=== PATIENT | male | born 1945 | race Caucasian/White ===

== ENCOUNTER 2018-03-10 00:39 | Emergency (ER) | payer MEDICARE, BC ==
[~2018-03-10] VITALS: Wt 94.1 kg
[2018-03-10 00:39] VITALS: BP 134/65
[~2018-03-10 00:39] MED LIST: ASPI-630 PO; MOXI3DRO2 LEFTEYE; MOXI3DRO2 RIGHTEYE; NEPA1.7D LEFTEYE; NEPA1.7D RIGHTEYE; PRED5DRO16 LEFTEYE; PRED5DRO16 RIGHTEYE
--- NOTE | 2018-03-10 00:46 | ED.ADGEN ---
Past History Past Medical History: Diabetes, Hypertension Adult General Chief Complaint Chief Complaint ".. I ve been feeling goyo bad the last couple days... I was started on a new blood pressure med.. ( Linsinopril 10) for my BP.. but been having an irregular heart beats..." " I was asleep at home.. and I woke up .. and could not feel my heart beating... so I knew I had to come in..." HPI HPI Patient is a 72 year old male who presents with above hx and complaints of dysrhythmia. Pt. presents in 3rd degree block and ventricular rate of 25. Pt. dizzy and diaphoretic. Pt. has hx DM and HTN. Pt. normally follows with Dr. Turk. Pt. does have pending apt. with a airport refueling handler. Pt. denies prior cardiac events or angina. Pt. placed on pacer and received 0.5 mg of of atropine. Pt. heart rate responded to pacer and atropine with rate equal to pacer, currently at a rate of 60 and Blood pressure of 147/53. Dr. Bhakta informed of presentation and accepts pt. in transfer to [facility] for possible venous pacer. Review of Systems Review of Systems Constitutional: Denies fever or chills [] Eyes: Denies change in visual acuity, redness, or eye pain [] HENT: Denies nasal congestion or sore throat [] Respiratory: Denies cough or shortness of breath [] Cardiovascular: No additional information not addressed in HPI [] GI: Denies abdominal pain, , vomiting, bloody stools or diarrhea [Complaints of ]Nausea : Denies dysuria or hematuria [] Musculoskeletal: Denies back pain or joint pain [] Integument: Denies rash or skin lesions [Complaints of ]Diaphoretic Neurologic: Denies headache, focal weakness or sensory changes [] Complaints of severe generalized weakness, dizzy. Endocrine: Denies polyuria or polydipsia [] All other systems were reviewed and found to be within normal limits, except as documented in this note. Family History Family History Non-contributory Current Medications Current Medications Current Medications Medications (Trade) Dose Ordered Sig/Camryn Start Time Stop Time Status Last Admin Dose Admin Aspirin (Children'S Aspirin) 324 mg 1X ONCE 03/10/18 01:15 03/10/18 01:17 DC Atropine Sulfate (ATROPINE 0.5mg SYRINGE) 0.5 mg 1X ONCE 03/10/18 01:15 03/10/18 01:17 DC Dopamine HCl/ Dextrose 250 ml @ 0 mls/hr 1X ONCE 03/10/18 01:30 03/10/18 01:31 DC Heparin Sodium (Porcine) (Heparin Sodium) 4,000 unit 1X ONCE 03/10/18 01:15 03/10/18 01:17 DC Heparin Sodium/ Dextrose 500 ml @ 0 mls/hr CONT PRN 03/10/18 01:30 Lactated Ringer's 1,000 ml @ 1,000 mls/hr Q1H 03/10/18 01:15 03/10/18 02:15 DC Ondansetron HCl (Zofran) 4 mg STK-MED ONCE 03/10/18 01:53 03/10/18 01:54 DC Allergies Allergies Allergies Coded Allergies Type Severity Reaction Last Updated Verified codeine Allergy Unknown upset stomach 10/31/14 No naproxen Allergy Unknown nausea 10/31/14 No Uncoded Allergies Type Severity Reaction Last Updated Verified VITAMINS Allergy Mild 10/13/14 Physical Exam Physical Exam Constitutional: In acute distress, morbid in appearance prior to pacing. [] HENT: Normocephalic, atraumatic, bilateral external ears normal, oropharynx moist, no oral exudates, nose normal. [] Eyes: PERRLA, EOMI, conjunctiva normal, no discharge. [] Neck: Normal range of motion, no tenderness, supple, no stridor. [] Cardiovascular:Bradycardic Heart rate regular rhythm, no murmur , PMI to Lt. , 3rd degree block on monitor Lungs & Thorax: Bilateral breath sounds clear to auscultation [] Abdomen: Bowel sounds normal, soft, no tenderness, no masses, no pulsatile masses. [] Skin: Warm, diaphoretic, no erythema, no rash. [] Back: No tenderness, no CVA tenderness. [] Extremities: No tenderness, no cyanosis, no clubbing, ROM intact, no edema. [] Neurologic: Alert and oriented X 3, normal motor function, normal sensory function, no focal deficits noted. [] Psychologic: Affect anxious, judgement normal, mood normal. [] Current Patient Data Vital Signs Vital Signs Date Time Temp Pulse Resp B/P (MAP) Pulse Ox O2 Delivery O2 Flow Rate FiO2 03/10/18 00:39 32 22 97 Room Air Lab Results Laboratory Tests Test 03/10/18 00:41 03/10/18 01:04 03/10/18 01:18 White Blood Count 9.8 x10^3/uL (4.0-11.0) Red Blood Count 3.77 x10^6/uL (4.30-5.70) L Hemoglobin 12.4 g/dL (13.0-17.5) L Hematocrit 36.0 % (39.0-53.0) L Mean Corpuscular Volume 95 fL (79-100) Mean Corpuscular Hemoglobin 33 pg (25-35) Mean Corpuscular Hemoglobin Concent 34 g/dL (31-37) Red Cell Distribution Width 16.7 % (11.5-14.5) H Platelet Count 203 x10^3/uL (140-400) Neutrophils (%) (Auto) 18 % (31-73) L Lymphocytes (%) (Auto) 48 % (24-48) Monocytes (%) (Auto) 31 % (0-9) H Eosinophils (%) (Auto) 2 % (0-3) Basophils (%) (Auto) 1 % (0-3) Neutrophils # (Auto) 1.8 x10^3uL (1.8-7.7) Lymphocytes # (Auto) 4.7 x10^3/uL (1.0-4.8) Monocytes # (Auto) 3.1 x10^3/uL (0.0-1.1) H Eosinophils # (Auto) 0.2 x10^3/uL (0.0-0.7) Basophils # (Auto) 0.1 x10^3/uL (0.0-0.2) Prothrombin Time 11.9 SEC (9.4-11.4) H Prothrombin Time INR 1.2 (0.9-1.1) H PTT 27 SEC (23-33) D-Dimer (Krystina) 0.20 mg/L (0.00-0.50) Sodium Level 137 mmol/L (136-145) Potassium Level 4.0 mmol/L (3.5-5.1) Chloride Level 105 mmol/L (98-107) Carbon Dioxide Level 24 mmol/L (21-32) Anion Gap 8 (6-14) 18 mmol/L (6-14) H Blood Urea Nitrogen 28 mg/dL (8-26) H Creatinine 1.7 mg/dL (0.7-1.3) H Estimated GFR (Cockcroft-Gault) 39.7 Glucose Level 150 mg/dL (70-99) H 146 mg/dL (60-99) H Calcium Level 9.0 mg/dL (8.5-10.1) Magnesium Level 2.3 mg/dL (1.8-2.4) Total Bilirubin 0.4 mg/dL (0.2-1.0) Direct Bilirubin 0.1 mg/dL (0.0-0.2) Aspartate Amino Transferase (AST) 41 U/L (15-37) H Alanine Aminotransferase (ALT) 37 U/L (16-63) Alkaline Phosphatase 110 U/L (46-116) Creatine Kinase 243 U/L (39-308) Creatine Kinase MB (Mass) 1.9 ng/mL (0.0-3.6) Creatine Kinase MB Relative Index 0.8 % (0-4) Troponin I Quantitative < 0.017 ng/mL (0-0.055) SQ-Qzd-F-Type Natriuretic Peptide 337 pg/mL (0-124) H Total Protein 8.1 g/dL (6.4-8.2) Albumin 4.1 g/dL (3.4-5.0) Lipase 81 U/L (73-393) POC Troponin I 0.00 ng/ml (<0.08) POC Hemoglobin 10.9 gm/dL POC Hematocrit 32 % POC Sodium 141 mmol/L (135-145) POC Potassium 4.1 mmol/L (3.5-5.0) POC Chloride 106 mmol/L (98-110) POC Total CO2 21 mmol/L (23-32) L POC Blood Urea Nitrogen 28 mg/dL (8-26) H POC Creatinine 1.5 mg/dL (0.5-1.4) H POC Ionized Calcium (Kacy) 1.09 mmol/L (1.13-1.32) L EKG EKG My interpretation of EKG shows a ventricular rate of 25 with a prolonged NE interval consistent with third degree atrial block[]. Does have a fascicular block. Repeat EKG shows a sinus bradycardia at a rate of 36 and third-degree block. No acute morphology changes. Radiology/Procedures Radiology/Procedures My interpretation of chest x-ray shows increased cephalization and cardiomegaly. Degenerative joint changes.[] Course & Med Decision Making Course & Med Decision Making Pertinent Labs and Imaging studies reviewed. (See chart for details). Patient reports he is no longer dizzy, no longer feels uncomfortable at time of transfer to [facility]. Pt. on Dopamine qtt- HR=36, BP 120- 130/60. Critical Care- 90 min. [] Final Impression Final Impression 1. Third-degree Atrial / Ventricular block with ventricular bradycardia 2. Diabetes 3. Mild elevation in creatinine 1.5 4. Anemia 10.9[] 5. Elevated Monocytes Dragon Disclaimer Dragon Disclaimer This electronic medical record was generated, in whole or in part, using a voice recognition dictation system. DENICE GUTIERREZ MD Mar 10, 2018 00:46
[2018-03-10 01:07] LABS: BASO # 0.1 x10^3/uL (0.0-0.2); BASO % 1 % (0-3); EOS # 0.2 x10^3/uL (0.0-0.7); EOS % 2 % (0-3); HEMOGLOBIN 12.4 g/dL (13.0-17.5); LYMPH # 4.7 x10^3/uL (1.0-4.8); LYMPH % 48 % (24-48); MEAN CORPUSCULAR HEMOGLOBIN 33 pg (25-35); MEAN CORPUSCULAR HGB CONC 34 g/dL (31-37); MEAN CORPUSCULAR VOLUME 95 fL (79-100); MONO # 3.1 x10^3/uL (0.0-1.1); MONO % 31 % (0-9); NEUT # 1.8 x10^3uL (1.8-7.7); NEUT % 18 % (31-73); PLATELET COUNT 203 x10^3/uL (140-400); RED BLOOD COUNT 3.77 x10^6/uL (4.30-5.70); RED CELL DISTRIBUTION WIDTH 16.7 % (11.5-14.5); WHITE BLOOD COUNT 9.8 x10^3/uL (4.0-11.0)
[2018-03-10] MEDS ORDERED: ASPIRIN 81 MG TAB.CHEW PO ONE (01:15)
[2018-03-10] MEDS ORDERED: IV RINGERS SOLUTION,LACTATED 1,000 ML IV SCH (01:15)
[2018-03-10] MEDS ORDERED: HEPARIN for IV BOLUS 10,000 UNIT/10 ML VIAL. IV ONE (01:15)
[2018-03-10] MEDS ORDERED: ATROPINE 0.5 MG/5 ML DISP.SYRIN. IV ONE (01:15)
[2018-03-10] MEDS ORDERED: HEPARIN 25,000UTS/500ML PREMIX 500 ML IV ONE (01:22)
[2018-03-10 01:24] LABS: HEMOGLOBIN ISTAT 10.9 gm/dL; POTASSIUM ISTAT 4.1 mmol/L (3.5-5.0)
[2018-03-10] MEDS ORDERED: HEPARIN 25,000UTS/500ML PREMIX 500 ML IV PRN (01:30)
[2018-03-10 01:35] LABS: ALBUMIN 4.1 g/dL (3.4-5.0); CREATININE 1.7 mg/dL (0.7-1.3); DIRECT BILIRUBIN 0.1 mg/dL (0.0-0.2); GFR 39.7; MAGNESIUM 2.3 mg/dL (1.8-2.4); TOTAL BILIRUBIN 0.4 mg/dL (0.2-1.0); TOTAL PROTEIN 8.1 g/dL (6.4-8.2)
[2018-03-10] MEDS ORDERED: ONDANSETRON PF 4 MG/2 ML VIAL. ONE (01:53)
[2018-03-10] MEDS ORDERED: ONDANSETRON PF 4 MG/2 ML VIAL. IV ONE (04:45)
--- NOTE | 2018-03-10 06:38 | EKG ---
[address] [address] Test Date: 2018-03-10 Test Time: 00:48:20 Pat Name: MIRI TREVIZO Department: Room: Gender: M Architectural Manager: : 1945 Requested By: DENICE GUTIERREZ Order Number: [id number] Reading MD: Measurements Intervals [place] Rate: 25 P: 54 TN: 298 QRS: -66 QRSD: 130 T: 3 QT: 580 QTc: 377 Interpretive Statements SINUS BRADYCARDIA PROLONGED TN INTERVAL ABNORMAL LEFT AXIS DEVIATION S1,S2,S3 PATTERN LEFT ANTERIOR FASCICULAR BLOCK RIGHT BUNDLE BRANCH BLOCK BIFASCICULAR BLOCK RVH WITH REPOLARIZATION ABNORMALITY ABNORMAL ECG RI6.01 Unconfirmed report No previous ECG available for comparison
--- NOTE | 2018-03-10 06:40 | EKG ---
[address] [address] Test Date: 2018-03-10 Test Time: 01:39:48 Pat Name: MIRI TREVIZO Department: Room: Gender: M Business Performance Specialist: : 1945 Requested By: DENICE GUTIERREZ Order Number: [id number] Reading MD: Measurements Intervals [place] Rate: 36 P: 54 TN: 94 QRS: -73 QRSD: 130 T: 48 QT: 534 QTc: 414 Interpretive Statements SINUS BRADYCARDIA COMPLEX(ES) WITH ABERRANT INTRAVENTRICULAR CONDUCTION ATRIAL PREMATURE COMPLEX(ES) ABNORMAL LEFT AXIS DEVIATION S1,S2,S3 PATTERN LEFT ANTERIOR FASCICULAR BLOCK NON SPECIFIC INTRAVENTRICULAR BLOCK NON SPECIFIC QRS ABNORMALITY NON SPECIFIC QRS ABNORMALITY ABNORMAL ECG RI6.01 Unconfirmed report No previous ECG available for comparison
--- NOTE | 2018-03-10 07:38 | RAD ---
Portable chest, 03/10/2018: HISTORY: Chest pain, bradycardia The heart size and pulmonary vascularity are within normal limits. No pulmonary consolidation is seen. There is no evidence of pleural fluid. IMPRESSION: No acute cardiopulmonary abnormality is detected. Electronically signed by: Tony Ontiveros MD (03/10/2018 7:34 AM) [facility]
[2018-03-10 14:38] LABS: THYROID STIM HORMONE (TSH) 4.122 uIU/mL (0.358-3.740)
== END 2018-03-10 02:11 | disposition short-term general hospital (02) ==
LOC: ER 00:39
DX: I44.2 Atrioventricular block, complete (principal); R00.1 Bradycardia, unspecified; E11.9 Type 2 diabetes mellitus without complications; D64.9 Anemia, unspecified; D72.829 Elevated white blood cell count, unspecified; R79.89 Other specified abnormal findings of blood chemistry; I11.9 Hypertensive heart disease without heart failure; Z88.5 Allergy status to narcotic agent; Z88.6 Allergy status to analgesic agent
CPT/HCPCS: 36415; 71045; 80047; 80048; 80061; 80076; 82553; 83690; 83735; 83880; 84443; 84484; 85025; 85379; 85610; 85730; 93005; 96365; 96375; 96376; 99291; 99292; J0461; J1265; J1644; J2405; J7120; 96360

== ENCOUNTER → 2021-01-29 | Outpatient (CLI) | payer MEDICARE, BC ==
[~2021-01-29] MED LIST changes: +MOXI3DRO18 LEFTEYE; +MOXI3DRO18 RIGHTEYE; -MOXI3DRO2 LEFTEYE; -MOXI3DRO2 RIGHTEYE
--- NOTE | 2021-01-29 11:45 | CARD ---
MR#: [id number] Date of Study: 01/29/2021 Ordering Physician: JENNIFER BHAKTA, Referring Physician: JENNIFER BHAKTA, Tech: Ying Sprague, [facility] APPROVED REPORT EXAM: Two-dimensional and M-mode echocardiogram with Doppler and color Doppler. Other Information Quality : AverageHR: 70bpm Rhythm : Pacemaker INDICATION Arrhythmia Surgery/Intervention Pacemaker: Date: 2018 RISK FACTORS Hypertension Diabetes 2D DIMENSIONS Left Atrium(2D)4.0 (1.6-4.0cm)IVSd1.1 (0.7-1.1cm) Aortic Root(2D)3.5 (2.0-3.7cm)LVDd4.7 (3.9-5.9cm) LVOT Diameter2.0 (1.8-2.4cm)PWd1.4 (0.7-1.1cm) LVDs2.7 (2.5-4.0cm)FS (%) 42.4 % SV76.5 mlLVEF(%)63.4 (>50%) Aortic Valve AoV Peak Delfino.119.2cm/sAoV VTI28.6cm AO Peak GR.5.7mmHgLVOT Peak Delfino.102.3cm/s LVOT VTI 23.34cmAO Mean GR.3mmHg RACHEL (VMAX)2.56qz7HRG (VTI)2.67cm2 Mitral Valve MV E Uczfmmpo09.1cm/sMV DECEL [id number] MV A Saaymkje42.5cm/sE/A Ratio0.7 Pulmonary Valve PV Peak Fkggvknc92.1cm/sPV Peak Grad.2mmHg Tricuspid Valve TR P. Vkdtyejl297rd/sRAP MOZIXCGP2xaDx TR Peak Gr.88maDpGGXU38rgTs Pulmonary Vein S1 Sujhmjfc29.9cm/sD2 Dyxdhbhe24.4cm/s LEFT VENTRICLE The left ventricle is normal size. There is mild to moderate concentric left ventricular hypertrophy. The left ventricular systolic function is normal and the ejection fraction is within normal range. T he Ejection Fraction is 55%. There is normal LV segmental wall motion. Transmitral Doppler flow patte rn is Grade I-abnormal relaxation pattern. RIGHT VENTRICLE The right ventricle is normal size. There is normal right ventricular wall thickness. The right ventr icular systolic function is normal. ATRIA The left atrium size is normal. The right atrium size is normal. The interatrial septum is intact wit h no evidence for an atrial septal defect or patent foramen ovale as noted on 2-D or Doppler imaging. AORTIC VALVE The aortic valve is normal in structure and function. Doppler and Color Flow revealed trace aortic re gurgitation. There is no significant aortic valvular stenosis. Calculated aortic valve area is 2.7 cm 2 with maximum pressure gradient of 6 mmHg and mean pressure gradient of 4 mmHg. MITRAL VALVE The mitral valve is normal in structure and function. There is no evidence of mitral valve prolapse. There is no mitral valve stenosis. Doppler and Color-flow revealed trace mitral regurgitation. TRICUSPID VALVE The tricuspid valve is normal in structure and function. Doppler and Color Flow revealed trace tricus pid regurgitation with an estimated PAP of 22 mmHg. There is no tricuspid valve stenosis. PULMONIC VALVE Doppler and Color Flow revealed trace pulmonic valvular regurgitation. There is no pulmonic valvular stenosis. GREAT VESSELS The aortic root is normal in size. The ascending aorta is normal in size. The IVC is normal in size a nd collapses >50% with inspiration. PERICARDIAL EFFUSION There is no evidence of significant pericardial effusion. Critical Notification Critical Value: No <Conclusion> There is mild to moderate concentric left ventricular hypertrophy. The left ventricular systolic function is normal and the ejection fraction is within normal range. Th e Ejection Fraction is 55%. There is normal LV segmental wall motion. Doppler and Color Flow revealed trace tricuspid regurgitation with an estimated PAP of 22 mmHg. Signed by : Jennifer Bhakta, Electronically Approved : 01/29/2021 11:44:51
== END ==
LOC: ECHO 08:37
PROVIDERS: ATTEND Internal Medicine Cardiovascular Disease
DX: I51.7 Cardiomegaly (principal); I44.2 Atrioventricular block, complete
CPT/HCPCS: 93306